=== PATIENT | female | born 1950 | race Caucasian/White ===

== ENCOUNTER 2017-04-24 19:52 | Emergency (ER) | payer MEDICARE, OTHER ==
[~2017-04-24] VITALS: Ht 175.3 cm; Wt 128.2 kg
[~2017-04-24 19:52] MED LIST: ASPI81TA3 PO
[2017-04-24 20:02] VITALS: BP 216/98; PULSE 68; RESP 14; O2SAT 98
--- NOTE | 2017-04-24 20:32 | DRSVH ---
PROCEDURE: X-RAY CHEST ONE VIEW, PORTABLE ([id number]) INDICATIONS: CP TECHNIQUE: One view of the chest was acquired. COMPARISON: None. FINDINGS: Surgical changes and devices: None. Lungs and pleura: No pleural effusions or pneumothorax. Lungs are clear. Mediastinum: Mediastinal contours appear normal. Heart size is normal. Bones and chest wall: No suspicious bony lesions. Overlying soft tissues appear unremarkable. IMPRESSION: Normal for age, source of chest pain is not seen. Dictated by: Stanley Barrera M.D. on 04/24/2017 at 20:30 Approved by: Stanley Barrera M.D. on 04/24/2017 at 20:30
[2017-04-24 20:39] LABS: EOSINOPHILS % (AUTO) 4.7 % (0-5); Mean Corpuscular Hemoglobin 28.3 pg (27.0-35.0); Mean Corpuscular Volume 83.8 fL (81-100); NEUTROPHILS % (AUTO) 61.3 % (40-74); Platelet Count 224 bil/L (150-400)
--- NOTE | 2017-04-24 21:00 | ED.REPORT ---
HPI-Chest Pain 40 and Over Date of Service Apr 24, 2017 ED Provider: Sterling Ortega Patient is a 66 year old female with a hx of CAD, CHF, HTN, DM, and AL with stent placement who presents to the ED after being referred by urgent care complaining of chest pressure onset 0300? today. Nursing Notes Stated Complaint: CARDIAC ISSUES Chief Complaint: Chest Pain Nursing Notes Reviewed: Yes Allergies: Coded Allergies: Penicillins (Verified Allergy, Severe, HIVES, OK WITH CEPHALOSPORINS, ) Sulfa (Sulfonamide Antibiotics) (Verified Allergy, Severe, HIVES, 06/21/15) Uncoded Allergies: seafood (Allergy, Unknown, hives , 03/23/15) had reaction to contrast dye Scheduled Aspirin Chew (Aspirin Chew) 81 Mg Chew 81 MG PO DAILY General Time Seen by MD: 20:59 Chief Complaint Chest pain Risk Factors )( CAD Risk Stratification Known CAD Risk factors reviewed )( TAD Risk Stratification Aortic valve disease HypertensionNo Risk factors reviewed )( PE Risk Stratification No , No , No Previous DVT, No Previous PE Risk factors reviewed Past Medical History Past Medical History AL Reports: Congestive heart failure, Coronary artery disease, Diabetes mellitus, Hypertension Past Surgical History Cardiac stent placement Reports: Tonsillectomy Smoking History Former Smoker Social History Other Social History: Local resident Ambulatory Status Independent Physical Exam Initial Vital Signs Vital Signs (First) Date Time Temp Pulse Resp B/P Pulse Ox O2 Delivery O2 Flow Rate FiO2 04/24/17 20:02 36.6 68 14 216/98 98 Room Air Interpretation & Diagnostics Lab Results Interpretation Result Diagram: 04/24/17201904/24/172019 Test 04/24/17 20:20 White Blood Count 8.1th/mm3 (3.8-10.1) Red Blood Count 5.38mil/mm3 (3.90-5.20) Hemoglobin 15.2g/dL (12.0-15.6) Hematocrit 45.1% (35.0-46.0) Mean Corpuscular Volume 83.8fL (81-100) Mean Corpuscular Hemoglobin 28.3pg (27.0-35.0) Mean Corpuscular Hemoglobin Concent 33.7% (32.0-37.0) Red Cell Distribution Width 13.0% (12.3-15.4) Platelet Count 224bil/L (150-400) Neutrophils (%) (Auto) 61.3% (40-74) Lymphocytes (%) (Auto) 24.8% (14-46) Monocytes (%) (Auto) 8.0% (4-12) Eosinophils (%) (Auto) 4.7% (0-5) Basophils (%) (Auto) 1.0% (0-3) Sodium Level 138mEq/L (134-144) Potassium Level 3.8mEq/L (3.5-5.2) Chloride Level 99mEq/L (97-108) Carbon Dioxide Level 28mmol/L (18-29) Blood Urea Nitrogen 15mg/dL (8-27) Creatinine 0.77mg/dL (0.57-1.00) Estimat Glomerular Filtration Rate 107mL/min (>59) Glucose Level 228mg/dL (60-99) Calcium Level 9.2mg/dL (8.5-10.1) Magnesium Level 1.9mg/dL (1.6-2.6) Total Bilirubin 0.4mg/dL (0.0-1.2) Aspartate Amino Transf (AST/SGOT) 13U/L (0-50) Alanine Aminotransferase (ALT/SGPT) 12U/L (0-32) Alkaline Phosphatase 87U/L (25-165) Troponin T 0.010ug/L (0.0-0.011) Pro-B-Type Natriuretic Peptide 127.2pg/mL (0-301) Total Protein 7.0g/dL (6.4-8.4) Albumin 3.7g/dL (3.4-5.0) Hold Croft Top Tube Received (Received) Discharge & Departure Referrals: Christi Azevedo MD (PCP) Sterling Ortega MD Apr 24, 2017 20:59 ZBIGNIEW FAITH Apr 24, 2017 21:06
[2017-04-24 21:02] LABS: TROPONIN T 0.01 ug/L (0.0-0.011)
[2017-04-24 21:13] LABS: Magnesium 1.9 mg/dL (1.6-2.6)
--- NOTE | 2017-04-24 21:18 | ED.REPORT ---
HPI-General Illness Date of Service Apr 24, 2017 ED Provider: Ritesh Dodd MD Patient is a 66 year old female with a hx of CAD, CHF, HTN, DM, and OR with stent placement who presents to the ED after being referred by urgent care complaining of 2 episodes of intermittent chest pressure, which has now resolved , onset 0330 today. Pt states that when she woke up she felt like she was " going into heart failure again". She reports associated increased lower extremity edema and SOB. She denies cough, diaphoresis, nausea, vomiting, and extremity pain. Pt reports taking Lasix daily. Nursing Notes Stated Complaint: CARDIAC ISSUES Chief Complaint: Chest Pain Nursing Notes Reviewed: Yes Allergies: Coded Allergies: Penicillins (Verified Allergy, Severe, HIVES, OK WITH CEPHALOSPORINS, ) Sulfa (Sulfonamide Antibiotics) (Verified Allergy, Severe, HIVES, 06/21/15) Uncoded Allergies: seafood (Allergy, Unknown, hives , 03/23/15) had reaction to contrast dye Scheduled Aspirin Chew (Aspirin Chew) 81 Mg Chew 81 MG PO DAILY General Time Seen by MD: 21:07 Chief Complaint Chest pain (Pressure) Hx Obtained From: Patient Arrived By: Walk-in Sudden in Onset?: Yes Onset Occurred: 17 - 20 hours ago Location: : Chest Quality: Pressure Severity: Current: No pain currently Recent Healthcare: No recent doctor visit, No recent hospitalization Past Medical History Past Medical History OR Reports: Congestive heart failure, Coronary artery disease, Diabetes mellitus, Hypertension Past Surgical History Cardiac stent placement Reports: Tonsillectomy Smoking History Former Smoker Social History Other Social History: Local resident Ambulatory Status Independent Review of Systems Full Review of Systems Respiratory: Reports: Shortness of breath Cardiovascular: Reports: Chest pain, Edema GI: Denies: Nausea, Vomiting Musculoskeletal: Denies: Extremity pain Skin: Denies Diaphoresis Complete sys rev & neg: except as marked. Physical Exam Vital Signs Vital Signs Date Time Temp Pulse Resp B/P Pulse Ox O2 Delivery O2 Flow Rate FiO2 04/24/17 23:29 36.8 69 16 119/73 94 Room Air 04/24/17 20:02 36.6 68 14 216/98 98 Room Air Initial VS: Reviewed Head / Eyes: Atraumatic, Normocephalic, PERRL Extremities: Vascular intact, Neuro intact Skin: Warm, Dry, No cyanosis Neurologic: Alert, Oriented, Nonfocal Psychiatric: Mood/affect normal, Behavior normal, Normal thought content General/Constitutional: Awake, Alert, No acute distress, Well appearing, Well developed, Well hydrated, Well nourished, Not toxic appearing Appearance / Presentation: Positive: Obese, morbidly Respiratory / Chest: Atraumatic, Breath sounds NL, Breath sounds = bilat, No respiratory distress, No rhonchi, No wheezing Cardiovascular: Heart rate NL, Regular rhythm, Heart sounds NL, Cap refill not delayed, Peripheral circulation NL Abdomen: Atraumatic, Soft, Non-tender, No guarding, No rebound, No distention Interpretation & Diagnostics Lab Results Interpretation Result Diagram: 04/24/17201904/24/17 2020 Test 04/24/17 20:20 04/24/17 21:52 04/24/17 22:34 White Blood Count 8.1th/mm3 (3.8-10.1) Red Blood Count 5.38mil/mm3 (3.90-5.20) Hemoglobin 15.2g/dL (12.0-15.6) Hematocrit 45.1% (35.0-46.0) Mean Corpuscular Volume 83.8fL (81-100) Mean Corpuscular Hemoglobin 28.3pg (27.0-35.0) Mean Corpuscular Hemoglobin Concent 33.7% (32.0-37.0) Red Cell Distribution Width 13.0% (12.3-15.4) Platelet Count 224bil/L (150-400) Neutrophils (%) (Auto) 61.3% (40-74) Lymphocytes (%) (Auto) 24.8% (14-46) Monocytes (%) (Auto) 8.0% (4-12) Eosinophils (%) (Auto) 4.7% (0-5) Basophils (%) (Auto) 1.0% (0-3) Sodium Level 138mEq/L (134-144) Potassium Level 3.8mEq/L (3.5-5.2) Chloride Level 99mEq/L (97-108) Carbon Dioxide Level 28mmol/L (18-29) Blood Urea Nitrogen 15mg/dL (8-27) Creatinine 0.77mg/dL (0.57-1.00) Estimat Glomerular Filtration Rate 107mL/min (>59) Glucose Level 228mg/dL (60-99) Calcium Level 9.2mg/dL (8.5-10.1) Magnesium Level 1.9mg/dL (1.6-2.6) Total Bilirubin 0.4mg/dL (0.0-1.2) Aspartate Amino Transf (AST/SGOT) 13U/L (0-50) Alanine Aminotransferase (ALT/SGPT) 12U/L (0-32) Alkaline Phosphatase 87U/L (25-165) Pro-B-Type Natriuretic Peptide 127.2pg/mL (0-301) Total Protein 7.0g/dL (6.4-8.4) Albumin 3.7g/dL (3.4-5.0) Hold Croft Top Tube Received (Received) Troponin T 0.010ug/L (0.0-0.011) Hold Urine Received (Received) General Lab Results Interp 1: Troponin # 1 normal, Troponin # 2 normal ECG Interpretation ECG Interpretation: LBBB Interpreted by: ED physician Normal ECG Interpretation: Normal rate (69), Normal sinus rhythm, No acute ischemic changes, No change from prior ECGs (06/21/15) X-Ray Chest Interpretation Chest Xray Interpretation: IMPRESSION: Normal for age, source of chest pain is not seen. Dictated by: Stanley Barrera M.D. on 04/24/2017 at 20:30 Approved by: Stanley Barrera M.D. on 04/24/2017 at 20:30 Re-Eval/Medical Decision Med Decision/Clinical Course 66-year-old with an episode of orthopnea, and chest discomfort. She has had multiple episodes of the same sort, and was away from home at the onset. She then drove here to be evaluated. She did not, as initially represented, developed edema after a long drive, but has had chronic intermittent leg edema and developed her symptoms prior to her car trip. Her symptoms sound anginal, with some orthopnea resulting from mild CHF. She is negative by enzymes 2. She has a left bundle branch chronically. She has been stable throughout her stay here and asymptomatic. Discharged now in stable condition for follow-up with Dr. Mendoza. Prompt return if worse. Source of Hx: Old records Time of Eval: 21:24 Re-Evaluation/Progress Note: Discussed lab results and plan for repeat Troponin, pt understands and agrees with plan. Time of Eval: 23:02 Re-Evaluation/Progress Note: Pt rechecked. Discussed lab results and plan for discharge, pt understands and agrees with plan. Counseled Regarding: Diagnosis, Lab results, Need for follow-up, When/why to return to ED Discharge & Departure Primary Impression: Chest pain Chest pain type: unspecified Qualified Code: R07.9 - Chest pain, unspecified Additional Impression: Orthopnea Disposition: Home Discharge Condition All VS Reviewed: Yes Condition: Improved Patient Instructions: Chest Pain (ED), Angina (ED), Congestive Heart Failure ( ED) Additional Instructions: There is no evidence of cardiac damage from your episode last night. There is no evidence of gross fluid overload at this point. The character of your symptoms suggests that you are having orthopnea, due to fluid edema mobilizing into your central circulation when you lie down. The other possibility remains that this is an anginal episode. You need to pursue this with Dr. Mendoza. You have had a reasonably negative cardiac stress study within the past year (July 2016) so the chance of critical blockages developing over that short period of time is relatively low. Call Dr. Mendoza tomorrow. Continue your current medications. Take an extra tablet of Lasix daily for another day or two. Return if you have any episodes of chest discomfort lasting thirty minutes or more. Referrals: Veronica Roy PA-C (PCP) Jocelyn Attestation Portions of this note were transcribed by Wyatt Hadley. I, Dr. Dodd personally performed the history, physical exam and medical decision-making; I reviewed and confirmed the accuracy of the information in the transcribed note. Signed by: Jocelyn Pacheco, 04/24/17 and 1030. copies to: Florentin Mendoza MD; Veronica Roy PA-C, Christopher W MD Apr 24, 2017 21:18 WYATT HADLEY Apr 24, 2017 21:27
[2017-04-24] MEDS ORDERED: Furosemide 10 mg/mL 4 mL Inj IVPUSH ONE (21:25)
[2017-04-24 23:29] VITALS: BP 119/73; PULSE 69; RESP 16; O2SAT 94
== END 2017-04-24 23:29 | disposition home or self-care (01) ==
LOC: SED 19:52
DX: R07.9 Chest pain, unspecified (principal); R06.01 Orthopnea; R60.0 Localized edema; E66.01 Morbid (severe) obesity due to excess calories; I25.2 Old myocardial infarction; I25.10 Atherosclerotic heart disease of native coronary artery without angina pectoris; I50.9 Heart failure, unspecified; E11.9 Type 2 diabetes mellitus without complications; I10 Essential (primary) hypertension; Z87.891 Personal history of nicotine dependence; Z68.41 Body mass index [BMI] 40.0-44.9, adult; Z95.5 Presence of coronary angioplasty implant and graft; Z91.013 Allergy to seafood; Z79.82 Long term (current) use of aspirin; Z88.2 Allergy status to sulfonamides; Z88.0 Allergy status to penicillin
CPT/HCPCS: 36415; 71010; 80053; 83735; 83880; 84484; 85025; 93005; 96374; 99285; J1940